=== PATIENT | male | born 1930 | race Caucasian/White ===

== ENCOUNTER 2017-01-25 18:04 | Inpatient (IN) | payer MEDICARE ==
[2017-01-25] MEDS ORDERED: DUONEB 0.5-3 MG/3 ml Neb IH ONE ×2 (18:35→18:43)
--- NOTE | 2017-01-25 18:42 | ERPHSYRPT ---
- History of Present Illness Time Seen by Provider: 01/25/17 18:26 Source: patient Exam Limitations: no limitations Patient Subjective Stated Complaint: PT COMPLAINS OF FEVER COUGH,SORE THROAT SINCE MONDAY. FAMILY STATES PT HAS BEEN ABLE TO EAT OR DRINK. PT DAUGHTER STATES TEMP WAS UP TO 102. DRY MUCUS MEMBRANES NOTED. Triage Nursing Assessment: PT ALERT WARM AND DRY RESP EASY NON LABORED PT AMBULATED TO ROOM WITHOUT DIFFICULTY WHEEZES NOTED ON AUSCULTATION. Physician History: This is a 86-year-old white male with history of aortic valve replacement, GI bleed, ulcers, atrial fibrillation, coronary artery disease, diverticulosis, Patient arrives with complaint of short of breath cough chills fever symptoms for a week. Patient without had any vomiting. Past medical history includes aortic valve replacement, GI bleed, ulcers, atrial fibrillation, coronary artery disease, diverticulosis,. Prostate cancer Past surgical history includes heart valve replacement (aorta, prostate surgery , radiation to prostate Timing/Duration: week(s) (one week) Severity: moderate Modifying Factors: Worsens With: eating, immobilization, medication, movement, rest, acetaminophen, ibuprofen, nothing Associated Symptoms: cough, chills, No nausea, No vomiting, No abdominal pain, No shortness of breath, No heartburn, No diaphoresis, No chest pain, No headaches, No loss of appetite, No malaise, No rash, No syncope, No seizure, No weakness Allergies/Adverse Reactions: No Known Drug Allergies Allergy (Unverified 02/24/12 07:22) Home Medications: Multaq 400 MG BID 02/24/12 [History] Protonix 40 mg IV DAILY 02/24/12 [History] Amlodipine Besylate 5 mg [Norvasc 5 mg] 5 mg PO BID 01/25/17 [History] Apixaban [Eliquis] 5 mg PO BID 01/25/17 [History] Carvedilol 3.125 mg [Coreg 3.125 MG] 3.125 mg PO BID 01/25/17 [History] Hx Tetanus, Diphtheria Vaccination/Date Given: Yes Hx Influenza Vaccination/Date Given: Yes Hx Pneumococcal Vaccination/Date Given: No Immunizations Up to Date: Yes - Review of Systems Constitutional: Fever, Chills, No Fatigue, No Lethargy, No Malaise, No Night Sweats, No Weakness, No Weight Loss Eyes: No Symptoms, No Discharge, No Eye Pain, No Eye Redness, No Itchy, No Photophobia, No Tearing, No Vision Changes, No Double Vision, No Foreign Body Sensation Ears, Nose, & Throat: No Symptoms, Throat Pain Respiratory: Cough, No Cyanosis, No Dyspnea, No Dyspnea on Exertion (NUR), No Stridor, No Wheezing Cardiac: No Chest Pain, No Edema, No Syncope Abdominal/Gastrointestinal: No Abdominal Pain, No Nausea, No Vomiting, No Diarrhea Genitourinary Symptoms: No Dysuria Musculoskeletal: No Back Pain, No Neck Pain Skin: No Rash Neurological: No Dizziness, No Focal Weakness, No Sensory Changes Psychological: No Symptoms Endocrine: No Symptoms All Other Systems: Reviewed and Negative - Past Medical History Pertinent Past Medical History: Yes Neurological History: No Pertinent History ENT History: No Pertinent History Cardiac History: Other Respiratory History: No Pertinent History Endocrine Medical History: No Pertinent History Musculoskeletal History: No Pertinent History GI Medical History: Stomach Cancer, GI Bleed History: No Pertinent History Psycho-Social History: No Pertinent History Male Reproductive Disorders: Other, Prostate Cancer Other Medical History: hx of valve replacement - Past Surgical History Past Surgical History: Yes Neuro Surgical History: No Pertinent History Cardiac: Valve Replacement Respiratory: No Pertinent History Gastrointestinal: Other Male Surgical History: Prostate Surgery Other Surgical History: radiation to prostate - Social History Smoking Status: Former smoker Exposure to second hand smoke: No Drug Use: none Patient Lives Alone: No - Nursing Vital Signs Nursing Vital Signs: Initial Vital Signs Temperature 100.5 F Temperature Source Oral Pulse Rate 101 Respiratory Rate 22 Blood Pressure [Right Arm] 123/84 - Physical Exam General Appearance: other (well-developed well-nourished white male frequent cough alert oriented 3) Eye Exam: PERRL/EOMI, eyes nml inspection Ears, Nose, Throat Exam: normal ENT inspection, TMs normal, pharynx normal, moist mucous membranes Neck Exam: normal inspection, non-tender, supple, full range of motion Respiratory Exam: normal breath sounds, rhonchi, No lungs clear, No respiratory distress Cardiovascular Exam: regular rate/rhythm, normal heart sounds, normal peripheral pulses Gastrointestinal/Abdomen Exam: soft, normal bowel sounds, No tenderness, No mass Back Exam: normal inspection, normal range of motion, No CVA tenderness, No vertebral tenderness Extremity Exam: normal inspection, normal range of motion, pelvis stable Neurologic Exam: alert, oriented x 3, cooperative, normal mood/affect, nml cerebellar function, nml station & gait, sensation nml, No motor deficits Skin Exam: normal color, warm, dry, No rash Lymphatic Exam: No adenopathy SpO2 Interpretation: normal (90% he) SpO2: 90 Oxygen Delivery: Room Air - Course Nursing assessment & vital signs reviewed: Yes EKG Interpreted by Me: RATE (92 bpm), A-fib, NORMAL AXIS, Other (EKG, atrial fibrillation, 92 bpm, normal axis, no acute ST or T wave changes) Ordered Tests: Active Orders 24 hr Category Date Time Status EKG-ER Only STAT Care 01/25/17 18:30 Active IV Insertion STAT Care 01/25/17 18:30 Active CHEST 1 VIEW (PORTABLE) Stat Exams 01/25/17 18:36 Taken BLOOD CULTURE Stat Lab 01/25/17 18:56 Received CBC W DIFF Stat Lab 01/25/17 18:45 Completed CMP Stat Lab 01/25/17 18:45 Completed CULTURE, THROAT Stat Lab 01/25/17 18:56 Received CULTURE,SPUTUM Stat Lab 01/25/17 18:30 Uncollected Lactic Acid Urgent Lab 01/25/17 18:34 Completed STREP SCREEN-BETA A Stat Lab 01/25/17 18:56 Completed Respiratory Nebulizer STAT RT 01/25/17 18:35 Completed Medication Summary Generic Name Dose Route Start Last Admin Trade Name Freq PRN Reason Stop Dose Admin Ceftriaxone Sodium/Dextrose 50 mls @ 100 mls/hr 01/25/17 19:34 Rocephin 1 Gm-D5w 50 Ml Bag IV 01/25/17 20:03 STAT ONE Discontinued Medications Generic Name Dose Route Start Last Admin Trade Name Freq PRN Reason Stop Dose Admin Albuterol/Ipratropium 3 ml 01/25/17 18:35 01/25/17 18:50 Duoneb 0.5-3 Mg/3 Ml Neb IH 01/25/17 18:36 3 ml STAT ONE Administration Albuterol/Ipratropium Confirm 01/25/17 18:43 Duoneb 0.5-3 Mg/3 Ml Neb Administered 01/25/17 18:44 Dose 3 ml IH .STK-MED ONE Lab/Rad Data: Laboratory Result Diagrams 01/25/17 18:45 01/25/17 18:45 Laboratory Results 01/25/17 01/25/17 01/25/17 Range/Units 18:56 18:45 18:45 WBC 3.9 L (4.0-10.5) K/mm3 RBC 3.99 L (4.1-5.6) M/mm3 Hgb 12.5 (12.5-18.0) gm/dl Hct 37.4 L (42-50) % MCV 93.7 (78-100) fl MCH 31.3 (26-32) pg MCHC 33.4 (32-36) g/dl RDW 13.9 (11.5-14.0) % Plt Count 128 L (150-450) K/mm3 MPV 11.8 H (6-9.5) fl Gran % 54.5 (36.0-66.0) % Lymphocytes % 28.6 (24.0-44.0) % Monocytes % 16.9 H (0.0-12.0) % Eosinophils % 0.0 (0.00-5.0) % Basophils % 0.0 (0.0-0.4) % Basophils # 0 (0-0.4) Sodium 146 H (136-145) mEq/L Potassium 3.4 L (3.5-5.1) mEq/L Chloride 110 H (98-107) mEq/L Carbon Dioxide 26.5 (21-32) mEq/L Anion Gap 12.6 (5-15) MEQ/L BUN 24 H (9-20) mg/dL Creatinine 1.21 (0.55-1.30) mg/dl Estimated GFR > 60 ML/MIN Glucose 127 H (70-110) MG/DL Lactic Acid (0.4-2.0) Calcium 8.0 L (8.5-10.1) mg/dL Total Bilirubin 0.5 (0.2-1.0) mg/dL AST 36 (15-37) U/L ALT 18 (12-78) U/L Alkaline Phosphatase 86 (46-116) U/L Serum Total Protein 6.0 L (6.4-8.2) gm/dL Albumin 2.8 L (3.4-5.0) g/dL Streptococcus Screen NEGATIVE (Negative) 01/25/17 Range/Units 18:34 WBC (4.0-10.5) K/mm3 RBC (4.1-5.6) M/mm3 Hgb (12.5-18.0) gm/dl Hct (42-50) % MCV (78-100) fl MCH (26-32) pg MCHC (32-36) g/dl RDW (11.5-14.0) % Plt Count (150-450) K/mm3 MPV (6-9.5) fl Gran % (36.0-66.0) % Lymphocytes % (24.0-44.0) % Monocytes % (0.0-12.0) % Eosinophils % (0.00-5.0) % Basophils % (0.0-0.4) % Basophils # (0-0.4) Sodium (136-145) mEq/L Potassium (3.5-5.1) mEq/L Chloride (98-107) mEq/L Carbon Dioxide (21-32) mEq/L Anion Gap (5-15) MEQ/L BUN (9-20) mg/dL Creatinine (0.55-1.30) mg/dl Estimated GFR ML/MIN Glucose (70-110) MG/DL Lactic Acid 1.3 (0.4-2.0) Calcium (8.5-10.1) mg/dL Total Bilirubin (0.2-1.0) mg/dL AST (15-37) U/L ALT (12-78) U/L Alkaline Phosphatase (46-116) U/L Serum Total Protein (6.4-8.2) gm/dL Albumin (3.4-5.0) g/dL Streptococcus Screen (Negative) - Progress Progress: improved Progress Note: 01/25/17 19:35 86-year-old white male with history of aortic valve replacement arrives with complaint of cough sore throat fever symptoms going on for a week. Patient's family states the patient has not been eating. Patient with bilateral rhonchi on the lung cm some wheezes. Chest x-ray shows a right lower lobe infiltrate. White count is 3.9. Strep is negative flu is pending. Case is discussed with Dr. Rodriguez will place on observation telemetry diagnosis pneumonia, fever. - Departure Time of Disposition: 19:37 Departure Disposition: Observation Clinical Impression: Pneumonia Qualifiers: Pneumonia type: due to unspecified organism Laterality: right Lung location: lower lobe of lung Qualified Code(s): J18.1 - Lobar pneumonia, unspecified organism Fever Qualifiers: Fever type: unspecified Qualified Code(s): R50.9 - Fever, unspecified Condition: Fair Critical Care Time: No Referrals: MARY RODRIGUEZ MD [Primary Care Provider] -
[2017-01-25 18:50] LABS: Granulocytes % 54.5 % (36.0-66.0); Lymphocytes % 28.6 % (24.0-44.0); Mean Cell Volume 93.7 fl (78-100); Mean Corpuscular Hemoglobin 31.3 pg (26-32); Mean Platelet Volume 11.8 fl (6-9.5); Monocytes % 16.9 % (0.0-12.0); Platelet Count 128 K/mm3 (150-450); Red Blood Count 3.99 M/mm3 (4.1-5.6); Red Cell Distribution Width 13.9 % (11.5-14.0); White Blood Count 3.9 K/mm3 (4.0-10.5)
[2017-01-25 19:20] LABS: ALBUMIN 2.8 g/dL (3.4-5.0); ALKALINE PHOSPHATASE 86 U/L (46-116); ANION GAP 12.6 MEQ/L (5-15); BILIRUBIN,TOTAL 0.5 mg/dL (0.2-1.0); BLOOD UREA NITROGEN 24 mg/dL (9-20); CHLORIDE 110 mEq/L (98-107); Carbon Dioxide 26.5 mEq/L (21-32); Glucose 127 MG/DL (70-110); Potassium 3.4 mEq/L (3.5-5.1); SGOT/AST 36 U/L (15-37); SGPT/ALT 18 U/L (12-78); SODIUM 146 mEq/L (136-145)
[2017-01-25] MEDS ORDERED: ROCEPHIN 1 Gm-D5w 50 ml Bag** 50 ML IV ONE ×2 (19:34→20:06)
[2017-01-25] MEDS: Sodium Chloride 0.9% 1000 ML 1,000 ML IV SCH (21:28)
[2017-01-25] MEDS: DUONEB 0.5-3 MG/3 ml Neb IH PRN (22:14)
[2017-01-25] MEDS: Zithromax 500 MG/ 250 ML NaCl Premix 250 ML IV SCH (22:39)
[2017-01-25] MEDS ORDERED: TYLENOL 325 MG PO PRN (23:46)
[2017-01-26] MEDS: Coreg 3.125 MG PO SCH ×2 (00:23→09:56)
[2017-01-26] MEDS: Multaq 400 MG PO SCH ×3 (00:24→21:43)
[2017-01-26] MEDS: ELIQUIS PO SCH ×3 (00:24→21:43)
[2017-01-26 05:35] LABS: Eosinophil % 0.3 % (0.00-5.0); Granulocytes % 48.2 % (36.0-66.0); Lymphocytes % 36.5 % (24.0-44.0); Mean Cell Volume 93.9 fl (78-100); Mean Platelet Volume 11.7 fl (6-9.5); Platelet Count 120 K/mm3 (150-450); Red Blood Count 3.96 M/mm3 (4.1-5.6); White Blood Count 3.7 K/mm3 (4.0-10.5)
[2017-01-26 05:53] LABS: Mean Corpuscular Hemoglobin 30.5 pg (26-32)
[2017-01-26 06:00] LABS: ALBUMIN 2.5 g/dL (3.4-5.0); ALKALINE PHOSPHATASE 76 U/L (46-116); ANION GAP 10.7 MEQ/L (5-15); BILIRUBIN,TOTAL 0.4 mg/dL (0.2-1.0); BLOOD UREA NITROGEN 21 mg/dL (9-20); CHLORIDE 112 mEq/L (98-107); Carbon Dioxide 27.3 mEq/L (21-32); Glucose 100 MG/DL (70-110); Potassium 3.3 mEq/L (3.5-5.1); SGOT/AST 36 U/L (15-37); SGPT/ALT 13 U/L (12-78); SODIUM 147 mEq/L (136-145); Total Protein 5.4 gm/dL (6.4-8.2)
[2017-01-26] MEDS: Sodium Chloride 0.9% 1000 ML 1,000 ML IV SCH ×2 (08:13→17:23)
--- NOTE | 2017-01-26 09:02 | XRAY ---
Indication: Cough and fever. Comparison: None Portable chest demonstrates patchy right upper lobe infiltrate. There is also mild bibasilar infiltrates/atelectasis, left greater than right. Query tiny bibasilar effusions. A few calcified granulomas. Heart is not enlarged. Bony thorax intact with osteopenia, degenerative changes, and sternotomy wires. Impression: Right upper lobe infiltrate and bibasilar infiltrate/atelectasis with tiny effusions. Correlate clinically.
[2017-01-26] MEDS: Protonix 40MG Tablet PO SCH (09:56)
[2017-01-26] MEDS: Zithromax 500 MG/ 250 ML NaCl Premix 250 ML IV SCH (09:56)
[2017-01-26] MEDS: NORVASC 5 MG PO SCH ×2 (09:56→21:43)
[2017-01-26] MEDS: celeBREX 100 MG PO SCH (09:56)
[2017-01-26] MEDS: ECOTRIN 81 MG PO SCH (09:56)
[2017-01-26] MEDS: Zestril 20 MG PO SCH (09:56)
--- NOTE | 2017-01-26 12:02 | PCM.HP ---
History of Present Illness - Chief Complaint Chief Complaint: Shortness of Breath for 1 - 2 days History of Present Illness: This is a 86-year-old white male with history of aortic valve replacement, GI bleed, ulcers, atrial fibrillation, coronary artery disease, diverticulosis, Patient arrives with complaint of short of breath cough chills fever symptoms for a week. Patient without had any vomiting. Past medical history includes aortic valve replacement, GI bleed, ulcers, atrial fibrillation, coronary artery disease, diverticulosis,. Prostate cancer Past surgical history includes heart valve replacement (aorta, prostate surgery , radiation to prostate Timing/Duration: week(s) (one week) - Review of Systems Constitutional: Fever, Chills, Weakness Eyes: No Symptoms Ears, Nose, & Throat: No Symptoms Respiratory: No Cough, No Short Of Breath Cardiac: No Chest Pain, No Edema, No Syncope Abdominal/Gastrointestinal: No Abdominal Pain, No Nausea, No Vomiting, No Diarrhea Genitourinary Symptoms: No Dysuria Musculoskeletal: No Back Pain, No Neck Pain Skin: No Rash Neurological: No Dizziness, No Focal Weakness, No Sensory Changes Psychological: No Symptoms Endocrine: No Symptoms Hematologic/Lymphatic: No Symptoms Immunological/Allergic: No Symptoms Medications & Allergies Home Medications: Home Medication List Dronedarone Hydrochloride 400* [Multaq 400 MG] 400 mg BID 02/24/12 [History Confirmed 01/25/17] Aspirin EC 81 mg [Ecotrin 81 mg] 81 mg PO DAILY #0 tablet.ec 02/25/12 [Rx Confirmed 01/25/17] Amlodipine Besylate 5 mg [Norvasc 5 mg] 5 mg PO BID 01/25/17 [History Confirmed 01/25/17] Apixaban [Eliquis] 5 mg PO BID 01/25/17 [History Confirmed 01/25/17] Carvedilol 3.125 mg [Coreg 3.125 MG] 3.125 mg PO BID 01/25/17 [History Confirmed 01/25/17] Celecoxib 100 mg [celeBREX 100 MG] 100 mg PO DAILY 01/25/17 [History Confirmed 01/25/17] Lisinopril 20 mg [Zestril 20 MG] 20 mg PO DAILY 01/25/17 [History Confirmed 01/25/17] PANTOPRAZOLE 40 mg Tablet [Protonix 40MG Tablet] 40 mg PO DAILY 01/25/17 [ History Confirmed 01/25/17] Allergies/Adverse Reactions: Allergies Allergy/AdvReac Type Severity Reaction Status Date / Time No Known Drug Allergies Allergy Unverified 02/24/12 07:22 - Past Medical History Past Medical History: Yes Neurological History: No Pertinent History ENT History: No Pertinent History Cardiac History: Other Respiratory History: No Pertinent History Endocrine Medical History: No Pertinent History Musculoskelatal History: No Pertinent History GI Medical History: GI Bleed History: No Pertinent History Pyscho-Social History: No Pertinent History Male Reproductive Disorders: Other, Prostate Cancer Comment: hx of valve replacement - Past Surgical History Past Surgical History: Yes Neuro Surgical History: No Pertinent History Cardiac History: Valve Replacement Respiratory Surgery: No Pertinent History GI Surgical History: Other Male Surgical History: Prostate Surgery Other Surgical History: radiation to prostate - Social History Smoking Status: Former smoker Exposure to second hand smoke: No Alcohol: None Drug Use: none - Physical Exam Vital Signs: Vital Signs - 24 hr Temp Pulse Resp BP Pulse Ox 01/26/17 11:53 98.7 F 73 20 88/61 96 01/26/17 10:28 93 L 01/26/17 09:00 20 01/26/17 08:00 97.5 F 82 20 99/56 93 L 01/26/17 05:00 22 01/26/17 04:31 96 01/26/17 04:00 99.1 F 80 22 100/61 94 L 01/26/17 01:00 24 01/26/17 00:00 99.2 F 91 H 24 97/60 94 L 01/25/17 22:16 86 18 92 L 01/25/17 21:00 100.2 F 96 H 18 109/59 92 L 01/25/17 19:45 90 L 01/25/17 18:54 101 H 22 90 L 01/25/17 18:14 100.5 F 118 H 18 123/84 90 L Oxygen-Last 24 hours O2 Percentage 100% O2 Percentage 100% O2 Percentage 100% O2 Percentage 4 Liters = 36% O2 Percentage 3 Liters = 32% General Appearance: no apparent distress, alert Neurologic Exam: alert, oriented x 3, cooperative, normal mood/affect, nml cerebellar function, nml station & gait, sensation nml, No motor deficits Eye Exam: PERRL/EOMI, eyes nml inspection Ears, Nose, Throat Exam: normal ENT inspection, TMs normal, pharynx normal, moist mucous membranes Neck Exam: normal inspection, non-tender, supple, full range of motion Respiratory Exam: normal breath sounds, diminished breath sounds, prolonged expirations, crackles/rales, rhonchi, No respiratory distress Cardiovascular Exam: regular rate/rhythm, normal heart sounds, normal peripheral pulses Gastrointestinal/Abdomen Exam: soft, normal bowel sounds, No tenderness, No mass Back Exam: normal inspection, normal range of motion, No CVA tenderness, No vertebral tenderness Extremity Exam: normal inspection, normal range of motion, pelvis stable Skin Exam: normal color, warm, dry, No rash Lymphatic Exam: No adenopathy Results - Labs Lab/Micro Results: Lab Results-Last 24 Hours 01/26/17 01/26/17 Range/Units 05:20 05:20 WBC 3.7 L (4.0-10.5) K/mm3 RBC 3.96 L (4.1-5.6) M/mm3 Hgb 12.1 L (12.5-18.0) gm/dl Hct 37.2 L (42-50) % MCV 93.9 (78-100) fl MCH 30.5 (26-32) pg MCHC 32.5 (32-36) g/dl RDW 14.0 (11.5-14.0) % Plt Count 120 L (150-450) K/mm3 MPV 11.7 H (6-9.5) fl Gran % 48.2 (36.0-66.0) % Lymphocytes % 36.5 (24.0-44.0) % Monocytes % 15.0 H (0.0-12.0) % Eosinophils % 0.3 (0.00-5.0) % Basophils % 0.0 (0.0-0.4) % Basophils # 0 (0-0.4) Sodium 147 H (136-145) mEq/L Potassium 3.3 L (3.5-5.1) mEq/L Chloride 112 H (98-107) mEq/L Carbon Dioxide 27.3 (21-32) mEq/L Anion Gap 10.7 (5-15) MEQ/L BUN 21 H (9-20) mg/dL Creatinine 1.16 (0.55-1.30) mg/dl Estimated GFR > 60 ML/MIN Glucose 100 (70-110) MG/DL Calcium 7.7 L (8.5-10.1) mg/dL Total Bilirubin 0.4 (0.2-1.0) mg/dL AST 36 (15-37) U/L ALT 13 (12-78) U/L Alkaline Phosphatase 76 (46-116) U/L Serum Total Protein 5.4 L (6.4-8.2) gm/dL Albumin 2.5 L (3.4-5.0) g/dL - Other Procedures and Tests Respiratory Therapy 01/25/17 21:35 neb [Respiratory Nebulizer] UD 01/25/17 22:32 Flutter Therapy 01/26/17 04:15 Oxygen OXYMIZER-LPM 10% Assessment/Plan (1) Pneumonia Current Visit: Yes Status: Acute Qualifiers: Pneumonia type: due to unspecified organism Laterality: right Lung location: lower lobe of lung Qualified Code(s): J18.1 - Lobar pneumonia, unspecified organism Code(s): J18.9 - PNEUMONIA, UNSPECIFIED ORGANISM (2) Influenza A Current Visit: Yes Status: Acute Code(s): J10.1 - FLU DUE TO OTH IDENT INFLUENZA VIRUS W OTH RESP MANIFEST
[2017-01-26] MEDS ORDERED: OSELTAMIVIR PHOSPHATE 30 MG CAP PO SCH (13:00)
[2017-01-26] MEDS: Tamiflu 75MG Capsule PO SCH ×2 (13:58→21:43)
[2017-01-26] MEDS: DUONEB 0.5-3 MG/3 ml Neb IH PRN (19:07)
[2017-01-26] MEDS: ROCEPHIN 1 Gm-D5w 50 ml Bag** 50 ML IV SCH (21:42)
[2017-01-26] MEDS: Robitussin 100 MG/5 ML PO PRN (23:37)
[2017-01-27] MEDS: Sodium Chloride 0.9% 1000 ML 1,000 ML IV SCH ×2 (06:18→19:18)
[2017-01-27] MEDS: Coreg 3.125 MG PO SCH (09:13)
[2017-01-27] MEDS: Protonix 40MG Tablet PO SCH (09:13)
[2017-01-27] MEDS: NORVASC 5 MG PO SCH ×2 (09:13→20:52)
[2017-01-27] MEDS: ELIQUIS PO SCH ×2 (09:13→20:51)
[2017-01-27] MEDS: celeBREX 100 MG PO SCH (09:13)
[2017-01-27] MEDS: ECOTRIN 81 MG PO SCH (09:14)
[2017-01-27] MEDS: Zestril 20 MG PO SCH (09:14)
[2017-01-27] MEDS: Multaq 400 MG PO SCH ×2 (09:14→20:52)
[2017-01-27] MEDS: Tamiflu 75MG Capsule PO SCH ×2 (09:14→20:52)
[2017-01-27] MEDS: Zithromax 500 MG/ 250 ML NaCl Premix 250 ML IV SCH (09:20)
[2017-01-27] MEDS: Robitussin 100 MG/5 ML PO PRN ×3 (09:23→23:27)
--- NOTE | 2017-01-27 13:20 | PCM.NOTE ---
Date and Time: 01/27/17 1318 Subjective Assessment: still short of breath, - Review of Systems Constitutional: No Fever, No Chills Eyes: No Symptoms Ears, Nose, & Throat: No Symptoms Respiratory: No Cough, No Short Of Breath Cardiac: No Chest Pain, No Edema, No Syncope Abdominal/Gastrointestinal: No Abdominal Pain, No Nausea, No Vomiting, No Diarrhea Genitourinary Symptoms: No Dysuria Musculoskeletal: No Back Pain, No Neck Pain Skin: No Rash Neurological: No Dizziness, No Focal Weakness, No Sensory Changes Psychological: No Symptoms Endocrine: No Symptoms Hematologic/Lymphatic: No Symptoms Immunological/Allergic: No Symptoms Objective Exam General Appearance: no apparent distress, alert Neurologic Exam: alert, oriented x 3, cooperative, normal mood/affect, nml cerebellar function, sensation nml, No motor deficits Skin Exam: normal color, warm, dry Eye Exam: PERRL, EOMI, eyes nml inspection Ears, Nose, Throat Exam: normal ENT inspection, pharynx normal, moist mucous membranes Neck Exam: normal inspection, non-tender, supple, full range of motion Respiratory Exam: normal breath sounds, lungs clear, No respiratory distress Cardiovascular Exam: regular rate/rhythm, normal heart sounds Gastrointestinal/Abdomen Exam: soft, No tenderness, No mass Extremity Exam: normal inspection, normal range of motion Back Exam: normal inspection, normal range of motion, No CVA tenderness, No vertebral tenderness Male Genitalia Exam: deferred Rectal Exam: deferred OBJECTIVE DATA Vital Signs: Vital Signs - 24 hr Temp Pulse Resp BP Pulse Ox 01/27/17 11:51 98.3 F 66 17 106/63 96 01/27/17 07:32 98.0 F 70 17 116/56 91 L 01/27/17 07:05 88 L 01/27/17 05:00 19 01/27/17 04:00 99.2 F 73 20 104/58 95 01/27/17 01:00 22 01/26/17 23:55 98.9 F 83 20 116/71 95 01/26/17 21:00 21 01/26/17 19:37 98.9 F 91 H 22 120/70 96 01/26/17 19:09 83 20 94 L 01/26/17 16:49 20 01/26/17 16:00 99.1 F 88 20 100/61 99 Oxygen-Last 24 hours O2 Percentage 3 Liters = 32% O2 Percentage 3 Liters = 32% O2 Percentage 3 Liters = 32% O2 Percentage 3 Liters = 32% O2 Percentage 3 Liters = 32% O2 Percentage 100% Pain Assessment - Last Documented Pain Intensity 0 Pain Scale Used 0-10 Pain Scale Intake and Output: Intake & Output 01/25/17 01/26/17 01/27/17 01/28/17 11:59 11:59 11:59 11:59 Intake Total 978 2783 Output Total 300 725 Balance 678 8 Weight 87.815 kg 91.354 kg Multi-Disciplinary Progress Notes: Multi-Disciplinary Progress Notes 01/26/17 17:59 Respiratory Note by Isabel Machado humidity added to o2 Initialized on 01/26/17 17:59 - END OF NOTE Assessment/Plan (1) Pneumonia Current Visit: Yes Status: Acute Qualifiers: Pneumonia type: due to unspecified organism Laterality: right Lung location: lower lobe of lung Qualified Code(s): J18.1 - Lobar pneumonia, unspecified organism Code(s): J18.9 - PNEUMONIA, UNSPECIFIED ORGANISM (2) Influenza A Current Visit: Yes Status: Acute Code(s): J10.1 - FLU DUE TO OTH IDENT INFLUENZA VIRUS W OTH RESP MANIFEST
[2017-01-27 14:14] LABS: Mean Cell Volume 93.8 fl (78-100); Mean Corpuscular Hemoglobin 30.9 pg (26-32); Mean Platelet Volume 11.5 fl (6-9.5); Platelet Count 123 K/mm3 (150-450); Red Blood Count 3.85 M/mm3 (4.1-5.6); Red Cell Distribution Width 13.8 % (11.5-14.0)
--- NOTE | 2017-01-27 14:16 | XRAY ---
Indication: Short of breath. Pneumonia. Comparison: January 25, 2017. Portable chest demonstrates mildly worsening right upper lobe infiltrate. Stable bibasilar infiltrate/atelectasis/effusions and pulmonary calcified granuloma. Heart is not enlarged.
[2017-01-27 14:37] LABS: ALBUMIN 2.4 g/dL (3.4-5.0); ALKALINE PHOSPHATASE 79 U/L (46-116); ANION GAP 9.3 MEQ/L (5-15); BILIRUBIN,TOTAL 0.5 mg/dL (0.2-1.0); BLOOD UREA NITROGEN 15 mg/dL (9-20); CHLORIDE 112 mEq/L (98-107); Carbon Dioxide 27.1 mEq/L (21-32); Glucose 114 MG/DL (70-110); Potassium 3.2 mEq/L (3.5-5.1); SGOT/AST 50 U/L (15-37); SGPT/ALT 22 U/L (12-78); SODIUM 145 mEq/L (136-145); Total Protein 5.5 gm/dL (6.4-8.2)
[2017-01-27] MEDS: DUONEB 0.5-3 MG/3 ml Neb IH PRN (15:00)
[2017-01-27] MEDS: DUONEB 0.5-3 MG/3 ml Neb IH SCH ×2 (18:45→23:00)
[2017-01-27] MEDS: ROCEPHIN 1 Gm-D5w 50 ml Bag** 50 ML IV SCH (20:51)
[2017-01-28] MEDS: DUONEB 0.5-3 MG/3 ml Neb IH SCH ×6 (03:18→22:58)
[2017-01-28] MEDS: Sodium Chloride 0.9% 1000 ML 1,000 ML IV SCH ×3 (05:34→23:43)
[2017-01-28] MEDS: Protonix 40MG Tablet PO SCH (08:45)
[2017-01-28] MEDS: Coreg 3.125 MG PO SCH (08:45)
[2017-01-28] MEDS: Zestril 20 MG PO SCH (08:45)
[2017-01-28] MEDS: NORVASC 5 MG PO SCH ×2 (08:46→22:17)
[2017-01-28] MEDS: ECOTRIN 81 MG PO SCH (08:46)
[2017-01-28] MEDS: ELIQUIS PO SCH ×2 (08:46→22:16)
[2017-01-28] MEDS: Zithromax 500 MG/ 250 ML NaCl Premix 250 ML IV SCH (08:46)
[2017-01-28] MEDS: Tamiflu 75MG Capsule PO SCH ×2 (08:46→22:17)
[2017-01-28] MEDS: celeBREX 100 MG PO SCH (08:46)
--- NOTE | 2017-01-28 19:14 | PCM.NOTE ---
Date and Time: 01/28/171911 Subjective Assessment: still very short of breath, c/o cough - Review of Systems Constitutional: No Fever, No Chills Eyes: No Symptoms Ears, Nose, & Throat: No Symptoms Respiratory: Cough, Orthopnea, Short Of Breath, Wheezing Cardiac: No Chest Pain, No Edema, No Syncope Abdominal/Gastrointestinal: No Abdominal Pain, No Nausea, No Vomiting, No Diarrhea Genitourinary Symptoms: No Dysuria Musculoskeletal: No Back Pain, No Neck Pain Skin: No Rash Neurological: No Dizziness, No Focal Weakness, No Sensory Changes Psychological: No Symptoms Endocrine: No Symptoms Hematologic/Lymphatic: No Symptoms Immunological/Allergic: No Symptoms Objective Exam General Appearance: no apparent distress, alert Neurologic Exam: alert, oriented x 3, cooperative, normal mood/affect, nml cerebellar function, sensation nml, No motor deficits Skin Exam: normal color, warm, dry Eye Exam: PERRL, EOMI, eyes nml inspection Ears, Nose, Throat Exam: normal ENT inspection, pharynx normal, moist mucous membranes Neck Exam: normal inspection, non-tender, supple, full range of motion Respiratory Exam: diminished breath sounds, crackles/rales, rhonchi, wheezing, No respiratory distress Cardiovascular Exam: regular rate/rhythm, normal heart sounds Gastrointestinal/Abdomen Exam: soft, No tenderness, No mass Extremity Exam: normal inspection, normal range of motion Back Exam: normal inspection, normal range of motion, No CVA tenderness, No vertebral tenderness Male Genitalia Exam: deferred Rectal Exam: deferred OBJECTIVE DATA Vital Signs: Vital Signs - 24 hr Temp Pulse Resp BP Pulse Ox 01/28/17 16:00 99 F 75 20 148/79 92 L 01/28/17 14:32 83 22 92 L 01/28/17 11:39 98.3 F 66 20 130/75 95 01/28/17 10:38 73 20 93 L 01/28/17 07:41 98.4 F 76 20 136/73 95 01/28/17 06:40 76 20 95 01/28/17 05:00 20 01/28/17 04:00 98.3 F 67 20 133/76 92 L 01/28/17 03:18 67 20 88 L 01/28/17 01:00 20 01/28/17 00:00 97.9 F 73 20 118/57 92 L 01/27/17 23:16 73 20 92 L 01/27/17 21:00 21 01/27/17 20:00 97.8 F 74 22 123/73 94 L 01/27/17 19:21 73 18 94 L Oxygen-Last 24 hours O2 Percentage 4 Liters = 36% O2 Percentage 4 Liters = 36% O2 Percentage 4 Liters = 36% O2 Percentage 4 Liters = 36% O2 Percentage 3 Liters = 32% O2 Percentage 3 Liters = 32% Pain Assessment - Last Documented Pain Intensity 0 Pain Scale Used 0-10 Pain Scale Intake and Output: Intake & Output 01/26/17 01/27/17 01/28/17 01/29/17 11:59 11:59 11:59 11:59 Intake Total 978 2783 3457 480 Output Total 347 535 5791 Balance 678 2058 2357 480 Weight 87.815 kg 91.354 kg 93.304 kg Radiology Exams: Radiology Procedures Category Date Time Status CHEST 1 VIEW (PORTABLE) Urgent Exams 01/27/17 13:43 Completed Assessment/Plan (1) Pneumonia Current Visit: Yes Status: Acute Qualifiers: Pneumonia type: due to unspecified organism Laterality: right Lung location: lower lobe of lung Qualified Code(s): J18.1 - Lobar pneumonia, unspecified organism Code(s): J18.9 - PNEUMONIA, UNSPECIFIED ORGANISM (2) Influenza A Current Visit: Yes Status: Acute Code(s): J10.1 - FLU DUE TO OTH IDENT INFLUENZA VIRUS W OTH RESP MANIFEST
[2017-01-28] MEDS: Multaq 400 MG PO SCH (22:17)
[2017-01-28] MEDS: ROCEPHIN 1 Gm-D5w 50 ml Bag** 50 ML IV SCH (22:17)
[2017-01-28] MEDS: Robitussin 100 MG/5 ML PO PRN (22:18)
[2017-01-29] MEDS: DUONEB 0.5-3 MG/3 ml Neb IH SCH ×6 (02:59→23:13)
[2017-01-29] MEDS: ELIQUIS PO SCH ×2 (09:35→22:50)
[2017-01-29] MEDS: ECOTRIN 81 MG PO SCH (09:35)
[2017-01-29] MEDS: Tamiflu 75MG Capsule PO SCH ×2 (09:35→22:50)
[2017-01-29] MEDS: Protonix 40MG Tablet PO SCH (09:35)
[2017-01-29] MEDS: Coreg 3.125 MG PO SCH (09:35)
[2017-01-29] MEDS: Zithromax 500 MG/ 250 ML NaCl Premix 250 ML IV SCH (09:35)
[2017-01-29] MEDS: celeBREX 100 MG PO SCH (09:35)
[2017-01-29] MEDS: NORVASC 5 MG PO SCH ×2 (09:35→22:50)
[2017-01-29] MEDS: Zestril 20 MG PO SCH (09:35)
[2017-01-29] MEDS: Multaq 400 MG PO SCH ×2 (09:36→22:50)
[2017-01-29] MEDS: Robitussin 100 MG/5 ML PO PRN ×2 (09:36→13:23)
--- NOTE | 2017-01-29 16:22 | PCM.NOTE ---
Date and Time: 01/29/171621 Subjective Assessment: doing better - Review of Systems Constitutional: No Fever, No Chills Eyes: No Symptoms Ears, Nose, & Throat: No Symptoms Respiratory: No Cough, No Short Of Breath Cardiac: No Chest Pain, No Edema, No Syncope Abdominal/Gastrointestinal: No Abdominal Pain, No Nausea, No Vomiting, No Diarrhea Genitourinary Symptoms: No Dysuria Musculoskeletal: No Back Pain, No Neck Pain Skin: No Rash Neurological: No Dizziness, No Focal Weakness, No Sensory Changes Psychological: No Symptoms Endocrine: No Symptoms Hematologic/Lymphatic: No Symptoms Immunological/Allergic: No Symptoms Objective Exam General Appearance: no apparent distress, alert Neurologic Exam: alert, oriented x 3, cooperative, normal mood/affect, nml cerebellar function, sensation nml, No motor deficits Skin Exam: normal color, warm, dry Eye Exam: PERRL, EOMI, eyes nml inspection Ears, Nose, Throat Exam: normal ENT inspection, pharynx normal, moist mucous membranes Neck Exam: normal inspection, non-tender, supple, full range of motion Respiratory Exam: normal breath sounds, lungs clear, No respiratory distress Cardiovascular Exam: regular rate/rhythm, normal heart sounds Gastrointestinal/Abdomen Exam: soft, No tenderness, No mass Extremity Exam: normal inspection, normal range of motion Back Exam: normal inspection, normal range of motion, No CVA tenderness, No vertebral tenderness Male Genitalia Exam: deferred Rectal Exam: deferred OBJECTIVE DATA Vital Signs: Vital Signs - 24 hr Temp Pulse Resp BP Pulse Ox 01/29/17 14:52 68 18 93 L 01/29/17 13:00 18 01/29/17 11:27 98.6 F 72 18 107/59 91 L 01/29/17 10:39 72 18 91 L 01/29/17 09:00 18 01/29/17 08:00 99.3 F 80 18 114/61 91 L 01/29/17 06:44 70 20 92 L 01/29/17 05:00 24 01/29/17 03:49 99.4 F 69 20 132/64 92 L 01/29/17 03:00 69 20 92 L 01/29/17 01:00 21 01/29/17 00:00 99.0 F 77 24 133/77 93 L 01/28/17 22:58 77 24 93 L 01/28/17 21:00 24 01/28/17 20:00 98.2 F 89 25 H 135/76 91 L 01/28/17 19:34 89 25 H 91 L Oxygen-Last 24 hours O2 Percentage 4 Liters = 36% O2 Percentage 4 Liters = 36% O2 Percentage 4 Liters = 36% O2 Percentage 4 Liters = 36% O2 Percentage 4 Liters = 36% Pain Assessment - Last Documented Pain Scale Used 0-10 Pain Scale Intake and Output: Intake & Output 01/27/17 01/28/17 01/29/17 01/30/17 11:59 11:59 11:59 11:59 Intake Total 2239 Output Total 1400 200 Balance 839 -200 Weight 92.261 kg Multi-Disciplinary Progress Notes: Multi-Disciplinary Progress Notes 01/29/17 11:49 Case Management Note by Verona Schulte DISCHARGE NEEDS ASSESSED. PT CONTINUES TO DECLINE, HAS INCREASED ACUITY TO INPT AT THIS TIME, DECREASING FLUIDS AND INCREASING OXYGEN. POOR PROGNOSIS. WITH PT WHEN DR. RODRIGUEZ AND CLAY CARMAN ROUNDED YESTERDAY AND EXPLAINED POOR PROGNOSIS. WILL CONTINUE TO MONITOR AND ASSESS FOR ALL DISCHARGE NEEDS. Initialized on 01/29/17 11:49 - END OF NOTE Assessment/Plan (1) Pneumonia Current Visit: Yes Status: Acute Qualifiers: Pneumonia type: due to unspecified organism Laterality: right Lung location: lower lobe of lung Qualified Code(s): J18.1 - Lobar pneumonia, unspecified organism Code(s): J18.9 - PNEUMONIA, UNSPECIFIED ORGANISM (2) Influenza A Current Visit: Yes Status: Acute Code(s): J10.1 - FLU DUE TO OTH IDENT INFLUENZA VIRUS W OTH RESP MANIFEST
[2017-01-29] MEDS: ROCEPHIN 1 Gm-D5w 50 ml Bag** 50 ML IV SCH (22:49)
[2017-01-29] MEDS: Sodium Chloride 0.9% 1000 ML 1,000 ML IV SCH (22:59)
[2017-01-30] MEDS: DUONEB 0.5-3 MG/3 ml Neb IH SCH ×3 (03:05→10:50)
[2017-01-30] MEDS: Zestril 20 MG PO SCH (08:44)
[2017-01-30] MEDS: NORVASC 5 MG PO SCH (08:44)
[2017-01-30] MEDS: celeBREX 100 MG PO SCH (08:44)
[2017-01-30] MEDS: Protonix 40MG Tablet PO SCH (08:44)
[2017-01-30] MEDS: ECOTRIN 81 MG PO SCH (08:44)
[2017-01-30] MEDS: ELIQUIS PO SCH (08:44)
[2017-01-30] MEDS: Coreg 3.125 MG PO SCH (08:44)
[2017-01-30] MEDS: Tamiflu 75MG Capsule PO SCH (08:44)
[2017-01-30] MEDS: Robitussin 100 MG/5 ML PO PRN (08:45)
[2017-01-30] MEDS: Multaq 400 MG PO SCH (08:45)
[2017-01-30] MEDS: Zithromax 500 MG/ 250 ML NaCl Premix 250 ML IV SCH (08:49)
[2017-01-30 11:47] VITALS: BP 119/64; PULSE 72; O2SAT 92
== END 2017-01-30 13:59 | disposition home or self-care (01) | DRG 195 ==
LOC: ED 18:04 → MED SURG 20:24 → OBSVTOIN 01-28 19:10
PROVIDERS: ADMIT General Practice; ATTEND General Practice
DX: J18.1 Lobar pneumonia, unspecified organism (principal); J10.1 Influenza due to other identified influenza virus with other respiratory manifestations; I48.91 Unspecified atrial fibrillation; Z85.028 Personal history of other malignant neoplasm of stomach; Z95.2 Presence of prosthetic heart valve; I25.10 Atherosclerotic heart disease of native coronary artery without angina pectoris; Z85.46 Personal history of malignant neoplasm of prostate
CPT/HCPCS: 36415; 71010; 80053; 83605; 85025; 85027; 87040; 87070; 87430; 87631; 93005; 93268; 94640; 94760; 96360; 99285; G0378; J0456; J0696; A9270-GY

== ENCOUNTER 2019-04-22 14:29 | Emergency (ER) | payer MEDICARE ==
[2019-04-22] MEDS ORDERED: Sodium Chloride 0.9% 1000 ML 1,000 ML IV SCH (14:45)
[2019-04-22 14:49] LABS: BASOPHIL % 0.3 % (0.0-0.4); Basophil (Absolute #) 0.02 (0-0.4); Eosinophil (Absolute #) 0.18 (0-0.5); Granulocyte Absolute (ANC) 3.19 (1.4-6.9); Granulocytes % 52.8 % (36.0-66.0); Hematocrit 39.5 % (42-50); Lymphocyte (Absolute #) 2.09 (1.0-4.6); Lymphocytes % 34.6 % (24.0-44.0); Mean Cell Volume 93.2 fl (78-100); Mean Corpuscular Hemoglobin 30.7 pg (26-32); Mean Corpuscular Hgb Concent. 32.9 g/dl (32-36); Mean Platelet Volume 10.9 fl (6-9.5); Monocyte (Absolute #) 0.56 (0.0-1.3); Monocytes % 9.3 % (0.0-12.0); Platelet Count 178 K/mm3 (150-450); Red Blood Count 4.24 M/mm3 (4.1-5.6); Red Cell Distribution Width 14.1 % (11.5-14.0)
[2019-04-22 14:50] VITALS: PULSE 66; O2SAT 95
[2019-04-22 15:01] LABS: ALBUMIN 3.9 g/dL (3.5-5.0); BILIRUBIN,TOTAL 0.4 mg/dL (0.2-1.3); Calcium 9.1 mg/dL (8.4-10.2); Creatinine 1 2.39 mg/dL (0.66-1.25); Total Protein 6.9 g/dL (6.3-8.2)
[2019-04-22 15:07] LABS: INR 1.25 (0.8-3.0); PROTIME 14.2 SECONDS (8.83-12.87)
[2019-04-22 15:09] LABS: PTT 34.8 SECONDS (24.1-36.1)
--- NOTE | 2019-04-22 15:12 | ERPHSYRPT ---
- History of Present Illness Time Seen by Provider: 04/22/19 15:07 Source: patient Exam Limitations: no limitations Patient Subjective Stated Complaint: Began having slurred speech and numbness in his right hand on , it happened again today and Dr. Rodriguez told him to come on in to the ER Triage Nursing Assessment: Pt walked into the ER with a stable gait, no slurred speech, no numbness or tingling, denies pain, doesn't feel right, reports having a couple of these episodes since , PERRL, doesn't appear to be in any distress Physician History: 80-year-old white male with history of GI bleed, prostate cancer, valve replacement arrives with complaint of slurred speech, and feeling of paresthesia in the right hand symptoms which occurred at 1:00 this afternoon. Patient apparently had similar symptoms last The patient is now without any slurred speech upon returning from CT of the head. He is not having paresthesias at this time. Past medical history includes GI bleed, prostate cancer, valve replacement Timing/Duration: today (1:00 pm) Severity: moderate Modifying Factors: Improves With: nothing Associated Symptoms: No nausea, No vomiting, No abdominal pain, No shortness of breath (nnegative CT), No heartburn, No diaphoresis, No cough, No chills, No chest pain, No fever, No headaches, No loss of appetite, No malaise, No rash, No syncope, No seizure Allergies/Adverse Reactions: No Known Drug Allergies Allergy (Verified 04/22/19 14:50) Home Medications: Dronedarone Hydrochloride 400* [Multaq 400 MG] 400 mg BID 02/24/12 [History] Amlodipine Besylate 5 mg [Norvasc 5 mg] 5 mg PO BID 01/25/17 [History] Apixaban [Eliquis] 5 mg PO BID 01/25/17 [History] Carvedilol 3.125 mg [Coreg 3.125 MG] 3.125 mg PO BID 01/25/17 [History] Celecoxib 100 mg [celeBREX 100 MG] 100 mg PO DAILY 01/25/17 [History] PANTOPRAZOLE 40 mg Tablet [Protonix 40MG Tablet] 40 mg PO DAILY 01/25/17 [ History] Hx Tetanus, Diphtheria Vaccination/Date Given: Yes Hx Influenza Vaccination/Date Given: Yes Hx Pneumococcal Vaccination/Date Given: No - Review of Systems Constitutional: No Fever, No Chills Eyes: No Symptoms Ears, Nose, & Throat: No Symptoms Respiratory: No Cough, No Dyspnea Cardiac: No Chest Pain, No Edema, No Syncope Abdominal/Gastrointestinal: No Abdominal Pain, No Nausea, No Vomiting, No Diarrhea Genitourinary Symptoms: No Dysuria Musculoskeletal: No Back Pain, No Neck Pain Skin: No Symptoms (and) Neurological: Parasthesia (parasthesia right hand), Speech Changes (slurry speech at 1:00) Psychological: No Symptoms Endocrine: No Symptoms All Other Systems: Reviewed and Negative - Past Medical History Pertinent Past Medical History: Yes Neurological History: No Pertinent History ENT History: No Pertinent History Cardiac History: Other Respiratory History: No Pertinent History Endocrine Medical History: No Pertinent History Musculoskeletal History: No Pertinent History GI Medical History: GI Bleed History: No Pertinent History Psycho-Social History: No Pertinent History Male Reproductive Disorders: Other, Prostate Cancer Other Medical History: hx of valve replacement - Past Surgical History Past Surgical History: Yes Neuro Surgical History: No Pertinent History Cardiac: Valve Replacement Respiratory: No Pertinent History Gastrointestinal: Other Male Surgical History: Prostate Surgery Other Surgical History: radiation to prostate - Social History Smoking Status: Former smoker Exposure to second hand smoke: No Drug Use: none Patient Lives Alone: No - Nursing Vital Signs Nursing Vital Signs: Initial Vital Signs Temperature 98.7 F 04/22/19 14:38 Pulse Rate 66 04/22/19 14:38 Blood Pressure 117/71 04/22/19 14:38 O2 Sat by Pulse Oximetry 95 04/22/19 14:38 Pain Scale Pain Intensity 0 - Physical Exam General Appearance: no apparent distress, alert Eye Exam: PERRL/EOMI, eyes nml inspection Ears, Nose, Throat Exam: normal ENT inspection, TMs normal, pharynx normal, moist mucous membranes Neck Exam: normal inspection, non-tender, supple, full range of motion Respiratory Exam: normal breath sounds, lungs clear, No respiratory distress Cardiovascular Exam: regular rate/rhythm, normal heart sounds, normal peripheral pulses, capillary refill <2 sec Gastrointestinal/Abdomen Exam: soft, normal bowel sounds, No tenderness, No mass Back Exam: normal inspection, normal range of motion, No CVA tenderness, No vertebral tenderness Extremity Exam: normal inspection, normal range of motion, pelvis stable Neurologic Exam: alert, oriented x 3, cooperative, dry wall installations mechanic II-XII nml as tested, normal mood/affect, nml cerebellar function, nml station & gait, sensation nml, other (patient is alert, oriented x3, cranial nerves II through XII intact, speech normal. No tongue deviation, no facial droop, cluster bore operator equal and symmetrical 5 over 5, normal finger to nose, no pronator drift, full range of motion all extremities,Sensation intact all extremities, no dysdiadochokinesia) , No motor deficits Skin Exam: normal color, warm, dry, No rash Lymphatic Exam: No adenopathy SpO2 Interpretation: normal (95%) SpO2: 95 - Course Nursing assessment & vital signs reviewed: Yes EKG Interpreted by Me: RATE (79 bpm), Sinus Rhythm, NORMAL AXIS Ordered Tests: Active Orders 24 hr Category Date Time Status Accucheck STAT Care 04/22/19 14:41 Active Hardware Installation Coordinator STAT Care 04/22/19 14:42 Active EKG-ER Only STAT Care 04/22/19 14:41 Active IV Insertion STAT Care 04/22/19 14:41 Active NPO (ED) STAT Care 04/22/19 14:42 Active Pulse Oximetry (ED) STAT Care 04/22/19 14:41 Active HEAD WITHOUT CONTRAST [CT] Stat Exams 04/22/19 14:42 Taken CBC W DIFF Stat Lab 04/22/19 14:45 Completed CMP Stat Lab 04/22/19 14:45 Completed PROTIME WITH INR Stat Lab 04/22/19 14:45 Completed PTT Stat Lab 04/22/19 14:45 Completed TROPONIN Q3H Lab 04/22/19 14:45 Ordered TROPONIN Q3H Lab 04/22/19 17:45 Ordered TROPONIN Q3H Lab 04/22/19 20:45 Ordered TROPONIN Q3H Lab 04/22/19 23:45 Ordered TROPONIN Q3H Lab 04/23/19 02:45 Ordered UA W/RFX UR CULTURE Stat Lab 04/22/19 14:42 Uncollected Medication Summary Generic Name Dose Route Start Last Admin Trade Name Freq PRN Reason Stop Dose Admin Sodium Chloride 1,000 mls @ 100 mls/hr 04/22/19 14:45 Sodium Chloride 0.9% 1000 Ml IV 05/22/19 14:44 .Q10H [facility] Lab/Rad Data: Laboratory Result Diagrams 04/22/19 14:45 04/22/19 14:45 Laboratory Results 04/22/19 04/22/19 04/22/19 Range/Units 14:45 14:45 14:45 WBC 6.0 (4.0-10.5) K/mm3 RBC 4.24 (4.1-5.6) M/mm3 Hgb 13.0 (12.5-18.0) gm/dl Hct 39.5 L (42-50) % MCV 93.2 (78-100) fl MCH 30.7 (26-32) pg MCHC 32.9 (32-36) g/dl RDW 14.1 H (11.5-14.0) % Plt Count 178 (150-450) K/mm3 MPV 10.9 H (6-9.5) fl Gran % 52.8 (36.0-66.0) % Eos # (Auto) 0.18 (0-0.5) Absolute Lymphs (auto) 2.09 (1.0-4.6) Absolute Monos (auto) 0.56 (0.0-1.3) Lymphocytes % 34.6 (24.0-44.0) % Monocytes % 9.3 (0.0-12.0) % Eosinophils % 3.0 (0.00-5.0) % Basophils % 0.3 (0.0-0.4) % Absolute Granulocytes 3.19 (1.4-6.9) Basophils # 0.02 (0-0.4) PT 14.2 H (8.83-12.87) SECONDS INR 1.25 (0.8-3.0) APTT 34.8 (24.1-36.1) SECONDS Sodium 141 (137-145) mmol/L Potassium 5.0 (3.5-5.1) mmol/L Chloride 106 (98-107) mmol/L Carbon Dioxide 26 (22-30) mmol/L Anion Gap 14.0 (5-15) MEQ/L BUN 36 H (9-20) mg/dL Creatinine 2.39 H (0.66-1.25) mg/dL Estimated GFR 27.4 ML/MIN Glucose 109 H (74-106) mg/dL Calcium 9.1 (8.4-10.2) mg/dL Total Bilirubin 0.40 (0.2-1.3) mg/dL AST 24 (17-59) U/L ALT 17 (0-50) U/L Alkaline Phosphatase 126 (38-126) U/L Serum Total Protein 6.9 (6.3-8.2) g/dL Albumin 3.9 (3.5-5.0) g/dL - Progress Progress: improved Progress Note: 04/22/19 15:19 80-year-old white male arrives with complaint of slurred speech since 1:00 he also states he has some right hand paresthesia. He states he has similar symptoms 4 days ago. Currently on interview his speech is clear and he has full range of motion with normal neurologic examination patient does have a subtle right subarachnoid hemorrhage on CT per radiology patient is on Elequis 2.5 mg, twice a day and aspirin 81 mg orally daily patient's vitals are stable. 04/22/19 15:26 04/22/19 15:27 I contacted [facility] one call and discuss case with Dr. Brooks. Will transfer patient to [facility] emergency room. I've discussed the case with Dr. Rodriguez he agrees with transfer to [facility]. - Departure Departure Disposition: Transfer ([facility]) Clinical Impression: Intracranial bleed, Hemorrhagic stroke, Paresthesias in right hand, Speech disorder Condition: Fair Critical Care Time: No Referrals: MARY RODRIGUEZ MD [Primary Care Provider] -
--- NOTE | 2019-04-22 15:26 | XRAY ---
Exam: CT of the head without IV contrast from 04/22/2019. CTDI: 68.98 Comparison: None. Indication: 88-year-old male with slurred speech, no history of prior stroke. Technique: Non-IV contrast axial images were obtained through the brain. Reconstructed coronal and sagittal images were created and reviewed. Findings: The ventricles are mildly prominent in a diffuse manner consistent with atrophy. No focal mass effect or midline shift is seen. I note some asymmetric, high attenuation, curvilinear density within an upper left parietal cortical sulcus suggestive of acute focal subarachnoid hemorrhage. This is best seen on axial images #27 through #31. I see no other evidence of acute intracranial hemorrhage. Moderate bilateral periventricular and subcortical white matter changes are seen, likely reflecting chronic small vessel ischemic disease. No dominant acute territorial infarct is seen. The remainder of the cortical sulci and basilar cisterns is prominent consistent with generalized atrophy. The calvarium of the skull appears intact. Pneumatization of the middle nasal turbinates is seen, more prominent on the right than left (i.e. handy bullosa. There is slight deviation of the nasal septum toward the left on the more inferior cuts. The paranasal sinuses reveal a 1.2 cm x 1.0 cm oval-shaped soft tissue density within the inferior anterior left aspect of the sphenoid sinus. This may represent some mucosal thickening or a polyp/retention cyst. Some vascular calcification is seen within the distal vertebral arteries. Impression: 1. I believe there is a subtle acute focal subarachnoid hemorrhage within an upper left parietal cortical sulcus. This is probably best seen on axial image #29. I called this report to the emergency Department physician, Dr. South, at 3:13 PM on 03/23/2019. 2. Moderate generalized atrophy and evidence of chronic small vessel ischemic white matter changes are seen. 3. No other acute intracranial process is seen. 4. 1.2 cm x 1.0 cm oval-shaped soft tissue density within the left side of lower sphenoid sinus anterolaterally. See above.
[2019-04-22] MEDS ORDERED: Sodium Chloride 0.9% 1000 ML 1,000 ML ONE (15:28)
[2019-04-22 15:40] VITALS: BP 123/76
== END 2019-04-22 15:42 | disposition short-term general hospital (02) ==
LOC: ED 14:29
DX: I62.9 Nontraumatic intracranial hemorrhage, unspecified (principal); I61.8 Other nontraumatic intracerebral hemorrhage; Z85.46 Personal history of malignant neoplasm of prostate; Z95.2 Presence of prosthetic heart valve; Z79.01 Long term (current) use of anticoagulants; Z79.899 Other long term (current) drug therapy
CPT/HCPCS: 36000; 36415; 70450; 80053; 82962; 84484; 85025; 85610; 85730; 93005; 93041; 94760; 96360; 99285; 99291

== ENCOUNTER 2019-05-22 09:57 | Observation (INO) | payer MEDICARE ==
--- NOTE | 2019-05-22 10:04 | ERPHSYRPT ---
- History of Present Illness Time Seen by Provider: 05/22/19 09:59 Source: patient, family, EMS Physician History: 88 y/o white male presents with weakness and found to have low bp. pt has h/o chf, htn, and cardiac valve replacement. pt has chronic upper back pain. pt denies cp, denies soa and denies abd pain. pt denies any active bleeding. pt was to have a back injection for his chronic back pain today. pt has not had his morning medications Timing/Duration: today Severity: mild Associated Symptoms: weakness, No nausea, No vomiting, No abdominal pain, No shortness of breath, No chest pain, No syncope Allergies/Adverse Reactions: No Known Drug Allergies Allergy (Verified 05/22/19 10:13) Home Medications: Dronedarone Hydrochloride 400* [Multaq 400 MG] 400 mg BID 02/24/12 [History] Amlodipine Besylate 5 mg [Norvasc 5 mg] 5 mg PO BID 01/25/17 [History] Carvedilol 3.125 mg [Coreg 3.125 MG] 3.125 mg PO BID 01/25/17 [History] Celecoxib 100 mg [celeBREX 100 MG] 100 mg PO DAILY 01/25/17 [History] PANTOPRAZOLE 40 mg Tablet [Protonix 40MG Tablet] 40 mg PO DAILY 01/25/17 [ History] Fenofibrate [Lipofen] 50 mg PO DAILY 05/22/19 [History] Levetiracetam [Keppra 500 mg ] 500 mg PO BID 05/22/19 [History] Torsemide 10 mg PO DAILY 05/22/19 [History] Hx Tetanus, Diphtheria Vaccination/Date Given: Yes Hx Influenza Vaccination/Date Given: Yes Hx Pneumococcal Vaccination/Date Given: No - Review of Systems Constitutional: Weakness Eyes: No Symptoms Ears, Nose, & Throat: No Symptoms Respiratory: No Symptoms Cardiac: No Symptoms Abdominal/Gastrointestinal: No Symptoms Genitourinary Symptoms: No Symptoms Musculoskeletal: No Symptoms Skin: No Symptoms Neurological: No Symptoms Psychological: No Symptoms Endocrine: No Symptoms Hematologic/Lymphatic: No Symptoms Immunological/Allergic: No Symptoms All Other Systems: Reviewed and Negative - Past Medical History Pertinent Past Medical History: Yes Neurological History: No Pertinent History ENT History: No Pertinent History Cardiac History: Other Respiratory History: No Pertinent History Endocrine Medical History: No Pertinent History Musculoskeletal History: No Pertinent History GI Medical History: GI Bleed History: No Pertinent History Psycho-Social History: No Pertinent History Male Reproductive Disorders: Other, Prostate Cancer Other Medical History: hx of valve replacement - Past Surgical History Past Surgical History: Yes Neuro Surgical History: No Pertinent History Cardiac: Valve Replacement Respiratory: No Pertinent History Gastrointestinal: Other Male Surgical History: Prostate Surgery Other Surgical History: radiation to prostate - Social History Smoking Status: Former smoker Exposure to second hand smoke: No Drug Use: none Patient Lives Alone: No - Nursing Vital Signs Nursing Vital Signs: Initial Vital Signs Temperature 97.5 F 05/22/19 09:58 Pulse Rate 73 05/22/19 09:58 Blood Pressure 101/69 05/22/19 09:58 O2 Sat by Pulse Oximetry 99 05/22/19 09:58 Pain Scale Pain Intensity 0 - Physical Exam General Appearance: no apparent distress, alert, anxiety Eye Exam: PERRL/EOMI Ears, Nose, Throat Exam: normal ENT inspection, moist mucous membranes Neck Exam: normal inspection, non-tender, supple, full range of motion Respiratory Exam: normal breath sounds, lungs clear, airway intact, No chest tenderness, No respiratory distress Cardiovascular Exam: regular rate/rhythm, normal heart sounds, normal peripheral pulses Gastrointestinal/Abdomen Exam: soft, normal bowel sounds, No tenderness Rectal Exam: not done Back Exam: normal inspection, normal range of motion, No CVA tenderness, No vertebral tenderness Extremity Exam: normal range of motion, pelvis stable, pedal edema (bilat ankle and feet) Neurologic Exam: alert, oriented x 3, cooperative, normal mood/affect, nml cerebellar function, nml station & gait Skin Exam: normal color, warm, dry Lymphatic Exam: No adenopathy SpO2 Interpretation: normal O2 Delivery: Room Air Ordered Tests: Active Orders 24 hr Category Date Time Status Investor STAT Care 05/22/19 10:05 Active EKG-ER Only STAT Care 05/22/19 10:04 Active Orthostatic Vital Signs STAT Care 05/22/19 11:44 Active CBC W DIFF Stat Lab 05/22/19 10:25 Completed CMP Stat Lab 05/22/19 10:25 Completed NT PRO BNP Stat Lab 05/22/19 10:25 Completed PROTIME WITH INR Stat Lab 05/22/19 10:25 Completed TROPONIN Q3H Lab 05/22/19 10:25 Completed TROPONIN Q3H Lab 05/22/19 13:15 Ordered TROPONIN Q3H Lab 05/22/19 16:15 Ordered TROPONIN Q3H Lab 05/22/19 19:15 Ordered TROPONIN Q3H Lab 05/22/19 22:15 Ordered Transfer Order Routine Transfer 05/22/19 Ordered Medication Summary Discontinued Medications Generic Name Dose Route Start Last Admin Trade Name Queta PRN Reason Stop Dose Admin Furosemide 40 mg 05/22/19 11:32 05/22/19 12:02 Lasix 40 Mg/4 Ml IV 05/22/19 11:33 40 mg STAT ONE Administration Furosemide Confirm 05/22/19 11:56 Lasix 40 Mg/4 Ml Administered 05/22/19 11:57 Dose 40 mg .ROUTE .STK-MED ONE Lab/Rad Data: Laboratory Result Diagrams 05/22/19 10:25 05/22/19 10:25 Laboratory Results 05/22/19 05/22/19 05/22/19 Range/Units 10:25 10:25 10:25 WBC (4.0-10.5) K/mm3 RBC (4.1-5.6) M/mm3 Hgb (12.5-18.0) gm/dl Hct (42-50) % MCV (78-100) fl MCH (26-32) pg MCHC (32-36) g/dl RDW (11.5-14.0) % Plt Count (150-450) K/mm3 MPV (6-9.5) fl Gran % (36.0-66.0) % Eos # (Auto) (0-0.5) Absolute Lymphs (auto) (1.0-4.6) Absolute Monos (auto) (0.0-1.3) Lymphocytes % (24.0-44.0) % Monocytes % (0.0-12.0) % Eosinophils % (0.00-5.0) % Basophils % (0.0-0.4) % Absolute Granulocytes (1.4-6.9) Basophils # (0-0.4) PT 12.1 (8.83-12.87) SECONDS INR 1.07 (0.8-3.0) Sodium 145 (137-145) mmol/L Potassium 4.4 (3.5-5.1) mmol/L Chloride 115 H (98-107) mmol/L Carbon Dioxide 23 (22-30) mmol/L Anion Gap 11.3 (5-15) MEQ/L BUN 26 H (9-20) mg/dL Creatinine 1.75 H (0.66-1.25) mg/dL Estimated GFR 39.3 ML/MIN Glucose 111 H (74-106) mg/dL Calcium 9.0 (8.4-10.2) mg/dL Total Bilirubin 0.50 (0.2-1.3) mg/dL AST 22 (17-59) U/L ALT 16 (0-50) U/L Alkaline Phosphatase 84 (38-126) U/L Troponin I < 0.012 (0.000-0.034) ng/mL NT-Pro-B Natriuret Pep 283 (0-1800) pg/mL Serum Total Protein 6.2 L (6.3-8.2) g/dL Albumin 3.5 (3.5-5.0) g/dL 05/22/19 Range/Units 10:25 WBC 5.7 (4.0-10.5) K/mm3 RBC 3.61 L (4.1-5.6) M/mm3 Hgb 11.1 L (12.5-18.0) gm/dl Hct 35.2 L (42-50) % MCV 97.5 (78-100) fl MCH 30.7 (26-32) pg MCHC 31.5 L (32-36) g/dl RDW 14.2 H (11.5-14.0) % Plt Count 126 L (150-450) K/mm3 MPV 11.1 H (6-9.5) fl Gran % 64.4 (36.0-66.0) % Eos # (Auto) 0.14 (0-0.5) Absolute Lymphs (auto) 1.32 (1.0-4.6) Absolute Monos (auto) 0.57 (0.0-1.3) Lymphocytes % 23.0 L (24.0-44.0) % Monocytes % 9.9 (0.0-12.0) % Eosinophils % 2.4 (0.00-5.0) % Basophils % 0.3 (0.0-0.4) % Absolute Granulocytes 3.69 (1.4-6.9) Basophils # 0.02 (0-0.4) PT (8.83-12.87) SECONDS INR (0.8-3.0) Sodium (137-145) mmol/L Potassium (3.5-5.1) mmol/L Chloride (98-107) mmol/L Carbon Dioxide (22-30) mmol/L Anion Gap (5-15) MEQ/L BUN (9-20) mg/dL Creatinine (0.66-1.25) mg/dL Estimated GFR ML/MIN Glucose (74-106) mg/dL Calcium (8.4-10.2) mg/dL Total Bilirubin (0.2-1.3) mg/dL AST (17-59) U/L ALT (0-50) U/L Alkaline Phosphatase (38-126) U/L Troponin I (0.000-0.034) ng/mL NT-Pro-B Natriuret Pep (0-1800) pg/mL Serum Total Protein (6.3-8.2) g/dL Albumin (3.5-5.0) g/dL - Progress Progress: improved Progress Note: 05/22/19 12:[address] rodriguez. i reviewed pt hx, condition, lab, ekg results.. will place in observation Discussed with : Laure Counseled pt/family regarding: lab results, diagnosis - Departure Departure Disposition: Home Clinical Impression: Weakness, Hypotension Condition: Fair Critical Care Time: Yes Critical Care Time(excluding separately billable procedures): 30-74 minutes Referrals: MARY RODRIGUEZ MD [Primary Care Provider] -
[2019-05-22 10:30] LABS: BASOPHIL % 0.3 % (0.0-0.4); Basophil (Absolute #) 0.02 (0-0.4); Eosinophil % 2.4 % (0.00-5.0); Eosinophil (Absolute #) 0.14 (0-0.5); Granulocyte Absolute (ANC) 3.69 (1.4-6.9); Granulocytes % 64.4 % (36.0-66.0); Hematocrit 35.2 % (42-50); Hemoglobin 11.1 gm/dl (12.5-18.0); Lymphocyte (Absolute #) 1.32 (1.0-4.6); Mean Cell Volume 97.5 fl (78-100); Mean Corpuscular Hemoglobin 30.7 pg (26-32); Mean Corpuscular Hgb Concent. 31.5 g/dl (32-36); Mean Platelet Volume 11.1 fl (6-9.5); Monocyte (Absolute #) 0.57 (0.0-1.3); Monocytes % 9.9 % (0.0-12.0); Platelet Count 126 K/mm3 (150-450); Red Blood Count 3.61 M/mm3 (4.1-5.6); Red Cell Distribution Width 14.2 % (11.5-14.0); White Blood Count 5.7 K/mm3 (4.0-10.5)
[2019-05-22 10:35] LABS: INR 1.07 (0.8-3.0); PROTIME 12.1 SECONDS (8.83-12.87)
[2019-05-22 10:49] LABS: ALBUMIN 3.5 g/dL (3.5-5.0); ANION GAP 11.3 MEQ/L (5-15); BILIRUBIN,TOTAL 0.5 mg/dL (0.2-1.3); Creatinine 1 1.75 mg/dL (0.66-1.25); Potassium 4.4 mmol/L (3.5-5.1); Total Protein 6.2 g/dL (6.3-8.2)
[2019-05-22] MEDS ORDERED: Lasix 40 MG/4 ML IV ONE (11:32)
[2019-05-22] MEDS ORDERED: Lasix 40 MG/4 ML ONE (11:56)
[2019-05-22] MEDS: Sodium Chloride 0.9% 1000 ML 1,000 ML IV SCH (14:10)
[2019-05-22] MEDS: Protonix 40MG Tablet PO SCH (17:29)
[2019-05-22] MEDS: KEPPRA 500 MG PO SCH (21:43)
[2019-05-22] MEDS: celeBREX 100 MG PO SCH (21:43)
[2019-05-22] MEDS: Multaq 400 MG PO SCH (21:43)
[2019-05-23 06:36] LABS: BASOPHIL % 0.2 % (0.0-0.4); Basophil (Absolute #) 0.01 (0-0.4); Eosinophil (Absolute #) 0.11 (0-0.5); Granulocyte Absolute (ANC) 2.95 (1.4-6.9); Hematocrit 32.8 % (42-50); Hemoglobin 10.3 gm/dl (12.5-18.0); Lymphocytes % 29.8 % (24.0-44.0); Mean Cell Volume 97.6 fl (78-100); Mean Corpuscular Hgb Concent. 31.4 g/dl (32-36); Mean Platelet Volume 11.6 fl (6-9.5); Platelet Count 90 K/mm3 (150-450); Red Blood Count 3.36 M/mm3 (4.1-5.6); Red Cell Distribution Width 14.2 % (11.5-14.0); White Blood Count 5.4 K/mm3 (4.0-10.5)
[2019-05-23 06:41] LABS: Mean Corpuscular Hemoglobin 30.6 pg (26-32)
[2019-05-23 07:00] LABS: ALBUMIN 3.4 g/dL (3.5-5.0); ANION GAP 10.2 MEQ/L (5-15); BILIRUBIN,TOTAL 0.6 mg/dL (0.2-1.3); Calcium 8.7 mg/dL (8.4-10.2); Creatinine 1 1.81 mg/dL (0.66-1.25); Potassium 4.7 mmol/L (3.5-5.1); Total Protein 6.1 g/dL (6.3-8.2)
[2019-05-23 08:31] LABS: Slide Review 1 YES
[2019-05-23] MEDS ORDERED: FENOFIBRATE 50 MG PO SCH (10:00)
[2019-05-23] MEDS: Tricor 145 MG PO SCH (10:34)
[2019-05-23] MEDS: Multaq 400 MG PO SCH ×2 (10:34→22:48)
[2019-05-23] MEDS: Protonix 40MG Tablet PO SCH (10:34)
[2019-05-23] MEDS: KEPPRA 500 MG PO SCH ×2 (10:35→22:47)
[2019-05-23] MEDS: celeBREX 100 MG PO SCH ×2 (10:35→22:47)
--- NOTE | 2019-05-23 12:08 | PCM.HP ---
History of Present Illness - Chief Complaint Chief Complaint: very low blood pressure for 2 days History of Present Illness: is a 88 y/o white male presents with weakness and found to have low bp. pt has h/o chf, htn, and cardiac valve replacement. pt has chronic upper back pain. pt denies cp, denies soa and denies abd pain. pt denies any active bleeding. pt was to have a back injection for his chronic back pain today. pt has not had his morning medications - Review of Systems Constitutional: No Fever, No Chills Eyes: No Symptoms Ears, Nose, & Throat: No Symptoms Respiratory: No Cough, No Short Of Breath Cardiac: No Chest Pain, No Edema, No Syncope Abdominal/Gastrointestinal: No Abdominal Pain, No Nausea, No Vomiting, No Diarrhea Genitourinary Symptoms: No Dysuria Musculoskeletal: No Back Pain, No Neck Pain Skin: No Rash Neurological: No Dizziness, No Focal Weakness, No Sensory Changes Psychological: No Symptoms Endocrine: No Symptoms Hematologic/Lymphatic: No Symptoms Immunological/Allergic: No Symptoms Medications & Allergies Home Medications: Home Medication List Dronedarone Hydrochloride 400* [Multaq 400 MG] 400 mg BID 02/24/12 [History Confirmed 05/22/19] Amlodipine Besylate 5 mg [Norvasc 5 mg] 5 mg PO BID 01/25/17 [History Confirmed 05/22/19] Carvedilol 3.125 mg [Coreg 3.125 MG] 3.125 mg PO BID 01/25/17 [History Confirmed 05/22/19] Celecoxib 100 mg [celeBREX 100 MG] 100 mg PO BID 01/25/17 [History Confirmed 05/22/19] PANTOPRAZOLE 40 mg Tablet [Protonix 40MG Tablet] 40 mg PO DAILY 01/25/17 [ History Confirmed 05/22/19] Fenofibrate [Lipofen] 50 mg PO DAILY 05/22/19 [History Confirmed 05/22/19] Levetiracetam [Keppra 500 mg ] 500 mg PO BID 05/22/19 [History Confirmed 05/22/19] Torsemide 10 mg PO DAILY 05/22/19 [History Confirmed 05/22/19] Allergies/Adverse Reactions: Allergies Allergy/AdvReac Type Severity Reaction Status Date / Time No Known Drug Allergies Allergy Verified 05/22/19 10:13 - Past Medical History Past Medical History: Yes Neurological History: Seizures, Stroke, TIA ENT History: Cataracts Cardiac History: Arrhythmia, Congestive Heart Failure, Hypertension, Other Respiratory History: Pneumonia Endocrine Medical History: No Pertinent History Musculoskelatal History: No Pertinent History GI Medical History: GI Bleed History: No Pertinent History Pyscho-Social History: No Pertinent History Male Reproductive Disorders: Other, Prostate Cancer Comment: hx of valve replacement; brain bleed; esophageal tear; a-fib - Past Surgical History Past Surgical History: Yes Neuro Surgical History: No Pertinent History Cardiac History: Valve Replacement Respiratory Surgery: No Pertinent History GI Surgical History: Other Musculskeletal Surgical Hx: Other Male Surgical History: Prostate Surgery Other Surgical History: radiation to prostate; esophageal repair; knee hardware ; IVC filter - Social History Smoking Status: Former smoker Exposure to second hand smoke: No Alcohol: None Drug Use: none - Physical Exam Vital Signs: Vital Signs - 24 hr Temp Pulse Resp BP Pulse Ox 05/23/19 11:17 93 L 05/23/19 09:09 72 94/50 05/23/19 08:42 72 87/54 05/23/19 08:00 98.6 F 76 18 89/49 93 L 05/23/19 04:00 98.9 F 76 18 99/61 97 05/22/19 23:53 99.9 F 80 16 97/54 95 05/22/19 20:00 99.2 F 78 18 108/54 98 05/22/19 19:30 97 05/22/19 16:35 97.9 F 82 20 109/65 96 05/22/19 14:55 97.8 F 78 22 112/63 98 05/22/19 13:33 97.8 F 78 22 112/63 98 05/22/19 12:50 97.8 F 78 22 112/63 78 L 05/22/19 12:27 78 16 106/73 99 Oxygen-Last 24 hours O2 Percentage 2 Liters = 28% O2 Percentage 2 Liters = 28% O2 Percentage 2 Liters = 28% O2 Percentage 2 Liters = 28% O2 Percentage 2 Liters = 28% O2 Percentage 2 Liters = 28% O2 Percentage 2 Liters = 28% O2 Percentage 3 Liters = 32% O2 Percentage 2 Liters = 28% General Appearance: no apparent distress, alert Neurologic Exam: alert, oriented x 3, cooperative, normal mood/affect, nml cerebellar function, nml station & gait, sensation nml, No motor deficits Eye Exam: PERRL/EOMI, eyes nml inspection Ears, Nose, Throat Exam: normal ENT inspection, TMs normal, pharynx normal, moist mucous membranes Neck Exam: normal inspection, non-tender, supple, full range of motion Respiratory Exam: normal breath sounds, lungs clear, No respiratory distress Cardiovascular Exam: regular rate/rhythm, normal heart sounds, normal peripheral pulses Gastrointestinal/Abdomen Exam: soft, normal bowel sounds, No tenderness, No mass Back Exam: normal inspection, normal range of motion, No CVA tenderness, No vertebral tenderness Extremity Exam: normal inspection, normal range of motion, pelvis stable Skin Exam: normal color, warm, dry, No rash Lymphatic Exam: No adenopathy Results - Labs Lab/Micro Results: Lab Results-Last 24 Hours 05/22/19 05/22/19 05/22/19 Range/Units 13:15 16:33 19:25 WBC (4.0-10.5) K/mm3 RBC (4.1-5.6) M/mm3 Hgb (12.5-18.0) gm/dl Hct (42-50) % MCV (78-100) fl MCH (26-32) pg MCHC (32-36) g/dl RDW (11.5-14.0) % Plt Count (150-450) K/mm3 MPV (6-9.5) fl Gran % (36.0-66.0) % Eos # (Auto) (0-0.5) Absolute Lymphs (auto) (1.0-4.6) Absolute Monos (auto) (0.0-1.3) Lymphocytes % (24.0-44.0) % Monocytes % (0.0-12.0) % Eosinophils % (0.00-5.0) % Basophils % (0.0-0.4) % Absolute Granulocytes (1.4-6.9) Basophils # (0-0.4) Sodium (137-145) mmol/L Potassium (3.5-5.1) mmol/L Chloride (98-107) mmol/L Carbon Dioxide (22-30) mmol/L Anion Gap (5-15) MEQ/L BUN (9-20) mg/dL Creatinine (0.66-1.25) mg/dL Estimated GFR ML/MIN Glucose (74-106) mg/dL Calcium (8.4-10.2) mg/dL Total Bilirubin (0.2-1.3) mg/dL AST (17-59) U/L ALT (0-50) U/L Alkaline Phosphatase (38-126) U/L Troponin I < 0.012 < 0.012 < 0.012 (0.000-0.034) ng/mL Serum Total Protein (6.3-8.2) g/dL Albumin (3.5-5.0) g/dL Slides for Path Review 05/22/19 05/23/19 05/23/19 Range/Units 22:40 04:00 05:45 WBC 5.4 (4.0-10.5) K/mm3 RBC 3.36 L (4.1-5.6) M/mm3 Hgb 10.3 L (12.5-18.0) gm/dl Hct 32.8 L (42-50) % MCV 97.6 (78-100) fl MCH 30.6 (26-32) pg MCHC 31.4 L (32-36) g/dl RDW 14.2 H (11.5-14.0) % Plt Count 90 L (150-450) K/mm3 MPV 11.6 H (6-9.5) fl Gran % 55.0 (36.0-66.0) % Eos # (Auto) 0.11 (0-0.5) Absolute Lymphs (auto) 1.60 (1.0-4.6) Absolute Monos (auto) 0.70 (0.0-1.3) Lymphocytes % 29.8 (24.0-44.0) % Monocytes % 13.0 H (0.0-12.0) % Eosinophils % 2.0 (0.00-5.0) % Basophils % 0.2 (0.0-0.4) % Absolute Granulocytes 2.95 (1.4-6.9) Basophils # 0.01 (0-0.4) Sodium 141 (137-145) mmol/L Potassium 4.7 (3.5-5.1) mmol/L Chloride 110 H (98-107) mmol/L Carbon Dioxide 25 (22-30) mmol/L Anion Gap 10.2 (5-15) MEQ/L BUN 32 H (9-20) mg/dL Creatinine 1.81 H (0.66-1.25) mg/dL Estimated GFR 37.8 ML/MIN Glucose 102 (74-106) mg/dL Calcium 8.7 (8.4-10.2) mg/dL Total Bilirubin 0.60 (0.2-1.3) mg/dL AST 22 (17-59) U/L ALT 13 (0-50) U/L Alkaline Phosphatase 73 (38-126) U/L Troponin I < 0.012 (0.000-0.034) ng/mL Serum Total Protein 6.1 L (6.3-8.2) g/dL Albumin 3.4 L (3.5-5.0) g/dL Slides for Path Review YES - Other Procedures and Tests Respiratory Therapy 05/22/19 20:34 Oxygen NASAL CANNULA 2 lpm Assessment/Plan (1) CHF (congestive heart failure), NYHA class IV Current Visit: Yes Status: Acute Qualifiers: Congestive heart failure type: combined Congestive heart failure chronicity : acute on chronic Qualified Code(s): I50.43 - Acute on chronic combined systolic (congestive) and diastolic (congestive) heart failure Assessment & Plan: Last Vital Signs Temp 98.6 F 05/23/19 08:00 Pulse 72 05/23/19 09:09 Resp 18 05/23/19 08:00 BP 94/50 05/23/19 09:09 Pulse Ox 93 L 05/23/19 11:17 Allergies No Known Drug Allergies Allergy (Verified 05/22/19 10:13) Active Medications Celecoxib (Celebrex 100 Mg) 100 mg PO BID CHERELLE Stop: 06/21/19 21:59 Last Admin: 05/23/19 10:35 Dose: 100 mg Dronedarone (Multaq 400 Mg) 400 mg PO BID CH[facility]ELLE Stop: 06/21/19 21:59 Last Admin: 05/23/19 10:34 Dose: 400 mg Fenofibrate (Tricor 145 Mg) 48.33 mg PO DAILY CH[facility]ELLE Stop: 06/22/19 09:59 Last Admin: 05/23/19 10:34 Dose: 48.33 mg Sodium Chloride (Sodium Chloride 0.9% 1000 Ml) 1,000 mls @ 50 mls/hr IV .Q20H [facility] Stop: 06/21/19 13:34 Last Admin: 05/22/19 14:10 Dose: 50 mls/hr Levetiracetam (Keppra 500 Mg ) 500 mg PO BID [facility] Stop: 06/21/19 21:59 Last Admin: 05/23/19 10:35 Dose: 500 mg Pantoprazole Sodium (Protonix 40mg Tablet) 40 mg PO DAILY [facility] Stop: 06/21/19 16:59 Last Admin: 05/23/19 10:34 Dose: 40 mg Torsemide (Demadex 20 Mg) 10 mg PO DAILY [facility] Stop: 06/22/19 09:59 Intake & Output 05/23/19 05/24/19 11:59 11:59 Intake Total 1528 Output Total 1250 Balance 278 Weight 89.1 kg Orders 05/22/19 14:22 Cardio-Pulmonary Rehab .as ordered 05/22/19 17:00 PANTOPRAZOLE 40 mg Tablet [Protonix 40MG Tablet] 40 mg PO DAILY 05/22/19 20:34 Oxygen NASAL CANNULA 2 lpm Pulse Oximetry .spot check 05/22/19 22:00 Celecoxib 100 mg [celeBREX 100 MG] 100 mg PO BID Dronedarone Hydrochloride 400* [Multaq 400 MG] 400 mg PO BID Levetiracetam [Keppra 500 mg ] 500 mg PO BID 05/22/19 Dinner Regular Diet 05/23/19 10:00 Fenofibrate,Micronized 145 mg* [Tricor 145 MG] 48.33 mg PO DAILY Torsemide 20 mg [Demadex 20 mg] 10 mg PO DAILY Lab Tests 05/22/19 05/22/19 05/22/19 13:15 16:33 19:25 WBC RBC Hgb Hct MCV MCH MCHC RDW Plt Count MPV Gran % Eos # (Auto) Absolute Lymphs (auto) Absolute Monos (auto) Lymphocytes % Monocytes % Eosinophils % Basophils % Absolute Granulocytes Basophils # Sodium Potassium Chloride Carbon Dioxide Anion Gap BUN Creatinine Estimated GFR Glucose Calcium Total Bilirubin AST ALT Alkaline Phosphatase Troponin I < 0.012 < 0.012 < 0.012 Serum Total Protein Albumin Slides for Path Review 05/22/19 05/23/19 05/23/19 22:40 04:00 05:45 WBC 5.4 RBC 3.36 L Hgb 10.3 L Hct 32.8 L MCV 97.6 MCH 30.6 MCHC 31.4 L RDW 14.2 H Plt Count 90 L MPV 11.6 H Gran % 55.0 Eos # (Auto) 0.11 Absolute Lymphs (auto) 1.60 Absolute Monos (auto) 0.70 Lymphocytes % 29.8 Monocytes % 13.0 H Eosinophils % 2.0 Basophils % 0.2 Absolute Granulocytes 2.95 Basophils # 0.01 Sodium 141 Potassium 4.7 Chloride 110 H Carbon Dioxide 25 Anion Gap 10.2 BUN 32 H Creatinine 1.81 H Estimated GFR 37.8 Glucose 102 Calcium 8.7 Total Bilirubin 0.60 AST 22 ALT 13 Alkaline Phosphatase 73 Troponin I < 0.012 Serum Total Protein 6.1 L Albumin 3.4 L Slides for Path Review YES Code(s): I50.9 - HEART FAILURE, UNSPECIFIED (2) CHF, acute on chronic Current Visit: Yes Status: Acute Qualifiers: Heart failure type: combined systolic and diastolic Qualified Code(s): I50.43 - Acute on chronic combined systolic (congestive) and diastolic ( congestive) heart failure Code(s): I50.9 - HEART FAILURE, UNSPECIFIED (3) Hypotension Current Visit: Yes Status: Acute Qualifiers: Hypotension type: hypotension due to drug Qualified Code(s): I95.2 - Hypotension due to drugs Code(s): I95.9 - HYPOTENSION, UNSPECIFIED
[2019-05-23] MEDS: DEMADEX 20 MG PO SCH (12:18)
[2019-05-23] MEDS: Sodium Chloride 0.9% 1000 ML 1,000 ML IV SCH (13:24)
[2019-05-24 07:25] VITALS: BP 114/66; PULSE 68
[2019-05-24] MEDS: KEPPRA 500 MG PO SCH (09:01)
[2019-05-24] MEDS: Multaq 400 MG PO SCH (09:01)
[2019-05-24] MEDS: DEMADEX 20 MG PO SCH (09:01)
[2019-05-24] MEDS: Protonix 40MG Tablet PO SCH (09:01)
[2019-05-24] MEDS: Tricor 145 MG PO SCH (09:02)
[2019-05-24] MEDS: celeBREX 100 MG PO SCH (09:02)
[2019-05-24 10:42] VITALS: O2SAT 92
--- NOTE | 2019-05-24 11:57 | PCM.DS ---
Discharge Summary Date of Admission: 05/22/19 13:20 Admitting Physician: MARY RODRIGUEZ Primary Care Provider: MARY RODRIGUEZ Allergies Allergies No Known Drug Allergies Allergy (Verified 05/22/19 10:13) Hospital Summary - Hospital Course Hospital Course: Chief Complaint Diagnosis very low blood pressure for 2 days Allergies Allergy/AdvReac Type Severity Reaction Status Date / Time No Known Drug Allergies Allergy Verified 05/22/19 10:13 Vital Signs (Last 24 hours) Temp Pulse Resp BP Pulse Ox 05/24/19 10:43 92 L 05/24/19 10:42 92 L 05/24/19 07:23 97.7 F 68 20 114/66 96 05/24/19 04:54 98.5 F 69 18 99/56 97 05/24/19 01:00 98.8 F 77 20 110/56 94 L 05/23/19 21:00 98.4 F 91 H 20 117/69 95 05/23/19 20:43 97 05/23/19 15:42 98 F 68 20 113/64 98 05/23/19 13:18 98.8 F 70 18 105/62 96 Home Medications Medication Instructions Recorded Confirmed Last Taken Type Levetiracetam [Keppra 500 mg 500 mg PO BID 05/22/19 05/22/19 05/21/19 History ] Torsemide 10 mg PO DAILY 05/22/19 05/22/19 05/21/19 History Amlodipine Besylate 5 mg 5 mg PO HS #30 05/24/19 05/22/19 05/21/19 Rx [Norvasc 5 mg] Carvedilol 3.125 mg [Coreg 3.125 mg PO DAILY #30 05/24/19 05/22/19 05/21/19 Rx 3.125 MG] Dronedarone Hydrochloride 400* 200 mg PO BID #30 05/24/19 05/22/19 05/21/19 Rx [Multaq 400 MG] Current Medications Discontinued Medications Generic Name Dose Route Start Last Admin Trade Name Freq PRN Reason Stop Dose Admin Celecoxib 100 mg 05/22/19 22:00 05/24/19 09:02 Celebrex 100 Mg PO 06/21/19 21:59 100 mg BID CHERELLE Administration Dronedarone 400 mg 05/22/19 22:00 05/24/19 09:01 Multaq 400 Mg PO 06/21/19 21:59 400 mg BID CHERELLE Administration Fenofibrate 48.33 mg 05/23/19 10:00 05/24/19 09:02 Tricor 145 Mg PO 06/22/19 09:59 48.33 mg DAILY CHERELLE Administration Furosemide 40 mg 05/22/19 11:32 05/22/19 12:02 Lasix 40 Mg/4 Ml IV 05/22/19 11:33 40 mg STAT ONE Administration Furosemide Confirm 05/22/19 11:56 Lasix 40 Mg/4 Ml Administered 05/22/19 11:57 Dose 40 mg .ROUTE .STK-MED ONE Sodium Chloride 1,000 mls @ 50 mls/hr 05/22/19 13:35 05/23/19 13:24 Sodium Chloride 0.9% 1000 Ml IV 06/21/19 13:34 50 mls/hr .Q20H CHERELLE Administration Levetiracetam 500 mg 05/22/19 22:00 05/24/19 09:01 Keppra 500 Mg PO 06/21/19 21:59 500 mg BID CHERELLE Administration Pantoprazole Sodium 40 mg 05/22/19 17:00 05/24/19 09:01 Protonix 40mg Tablet PO 06/21/19 16:59 40 mg DAILY CHERELLE Administration Torsemide 10 mg 05/23/19 10:00 05/24/19 09:01 Demadex 20 Mg PO 06/22/19 09:59 10 mg DAILY CHERELLE Administration Intake & Output (Last 24 hours) 05/21/19 05/22/19 05/23/19 05/24/19 11:59 11:59 11:59 11:59 Intake Total 1528 2246 Output Total 1250 2300 Balance 278 -54 Weight 83.915 kg 89.1 kg 91 kg Orders (Last 24 hours) Category Date Time Status Discharge Planning,Consult Routine Discharge 05/24/19 Active Discharge Routine Discharge 05/24/19 Ordered Patient Care Notes (Last 24 hours) 05/24/19 11:21 Nursing Note by Marianne Herrera Patient wheeled to front exit on discharge. [facility] representative met with patient and family before discharge to discuss setting up the hospice program at home Initialized on 05/24/19 11:21 - END OF NOTE - Vitals & Intake/Output Vital Signs: Vital Signs Temperature 97.7 F 05/24/19 07:23 Pulse Rate 68 05/24/19 07:23 Respiratory Rate 20 05/24/19 07:23 Blood Pressure 114/66 05/24/19 07:23 O2 Sat by Pulse Oximetry 92 L 05/24/19 10:43 Oxygen-Last Documented O2 Percentage 3 Liters = 32% Intake & Output: Intake & Output 05/21/19 05/22/19 05/23/19 05/24/19 11:59 11:59 11:59 11:59 Intake Total 1528 2246 Output Total 1250 2300 Balance 278 -54 Weight 83.915 kg 89.1 kg 91 kg - Lab Result Diagrams: 05/23/19 04:00 05/23/19 05:45 - Procedures and Test Procedures and Tests throughout Hospitalization: Therapy Orders & Screens 05/22/19 20:34 Oxygen NASAL CANNULA 2 lpm Comment: Diagnosis: weakness; hypotension Discharge Exam General Appearance: no apparent distress, alert Neurologic Exam: alert, oriented x 3, cooperative, normal mood/affect, nml cerebellar function, sensation nml, No motor deficits Eye Exam: PERRL, EOMI, eyes nml inspection Ears, Nose, Throat Exam: normal ENT inspection, pharynx normal, moist mucous membranes Neck Exam: normal inspection, non-tender, supple, full range of motion Respiratory Exam: normal breath sounds, lungs clear, No respiratory distress Cardiovascular Exam: regular rate/rhythm, normal heart sounds Gastrointestinal/Abdomen Exam: soft, No tenderness, No mass Male Genitalia Exam: deferred Rectal Exam: deferred Back Exam: normal inspection, normal range of motion, No CVA tenderness, No vertebral tenderness Extremity Exam: normal inspection, normal range of motion Skin Exam: normal color, warm, dry Final Diagnosis/Problem List - Final Discharge Diagnosis/Problem (1) CHF (congestive heart failure), NYHA class IV Status: Resolved Code(s): I50.9 - HEART FAILURE, UNSPECIFIED (2) CHF, acute on chronic Status: Resolved Code(s): I50.9 - HEART FAILURE, UNSPECIFIED (3) Hypotension Status: Acute Code(s): I95.9 - HYPOTENSION, UNSPECIFIED - Discharge Discharge Date: 05/24/19 Disposition: Hospice @ [facility] Condition: Stable Prescriptions: Continue PANTOPRAZOLE 40 mg Tablet [Protonix 40MG Tablet] 40 mg PO DAILY Celecoxib 100 mg [celeBREX 100 MG] 100 mg PO BID Torsemide 10 mg PO DAILY Levetiracetam [Keppra 500 mg ] 500 mg PO BID Changed Carvedilol 3.125 mg [Coreg 3.125 MG] 3.125 mg PO DAILY #30 Dronedarone Hydrochloride 400* [Multaq 400 MG] 200 mg PO BID #30 Amlodipine Besylate 5 mg [Norvasc 5 mg] 5 mg PO HS #30 Discontinued Fenofibrate [Lipofen] 50 mg PO DAILY Instructions: Heart Failure, Adult (DC), Low Blood Pressure (DC) Additional Instructions: [facility] WILL ADMIT YOU TO SERVICE ONCE YOUR ARE HOME TODAY. 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
== END 2019-05-24 11:15 | disposition hospice, home (50) ==
LOC: ED 09:57 → MED SURG 13:20
PROVIDERS: ADMIT General Practice; ATTEND General Practice
DX: I50.9 Heart failure, unspecified (principal); I95.9 Hypotension, unspecified; D50.9 Iron deficiency anemia, unspecified; Z79.899 Other long term (current) drug therapy
CPT/HCPCS: 36415; 80053; 83880; 84484; 85025; 85610; 93005; 93041; 94760; 96374; 99285; G0378; J1940; A9270-GY

== ENCOUNTER 2019-06-12 11:16 | Day surgery (SDC) | payer MEDICARE ==
[2019-06-12] MEDS ORDERED: LIDOCAINE HCL 2% 100 MG/5 ML IJ ONE (11:17)
[2019-06-12] MEDS ORDERED: Depo-Medrol 40 MG/ML IM ONE (11:17)
[2019-06-12] MEDS ORDERED: Ketamine HCl 50 MG/ML ONE (11:55)
[2019-06-12] MEDS ORDERED: DIPRIVAN 200 MG/20 ML IV ONE (12:16)
[2019-06-12] MEDS ORDERED: Lactated Ringers 1,000 ML IV ONE (13:22)
--- NOTE | 2019-06-12 13:26 | XRAY ---
Indication: Bilateral L4-S1 MBB. Intraoperative fluoroscopy was provided for 8 seconds. Single digital spot images submitted for interpretation demonstrates posterior needle tips projecting over the expected course of the left and right L4-S1 nerve roots. Correlate with intraoperative findings/report. Incidental partially visualized IVC filter.
--- NOTE | 2019-06-12 13:36 | XRAY ---
8 seconds of fluoroscopy was used in surgery for bilateral L4-L5 and L5-S1 MBB.
== END 2019-06-12 12:48 | disposition home or self-care (01) ==
LOC: SDC-PAIN 11:16
PROVIDERS: ATTEND Psychiatry & Neurology Pain Medicine
DX: M47.816 Spondylosis without myelopathy or radiculopathy, lumbar region (principal); I10 Essential (primary) hypertension; K21.9 Gastro-esophageal reflux disease without esophagitis; Z79.899 Other long term (current) drug therapy
CPT/HCPCS: 64493; 64494; 72020; 77002; J1030; J2704

== ENCOUNTER 2019-07-10 10:17 | Day surgery (SDC) | payer MEDICARE ==
[2019-07-10] MEDS ORDERED: Xylocaine 1% Vial 30 ML PF IJ ONE (10:18)
[2019-07-10] MEDS ORDERED: Depo-Medrol 40 MG/ML IM ONE (10:18)
[2019-07-10] MEDS ORDERED: Marcaine 0.5% SDV 10 ML IJ ONE (10:18)
--- NOTE | 2019-07-10 16:26 | XRAY ---
23 seconds fluoroscopy time in surgery for bilateral L4-S1 MBB.
--- NOTE | 2019-07-11 06:49 | XRAY ---
Indication: Bilateral L4-S1 MBB. Intraoperative fluoroscopy was provided for 23 seconds. A PA digital spot image demonstrates distals spinal needle tips to be projected over the expected course of the left and right L4-S1 nerve roots. Correlate with intraoperative findings/report.
== END 2019-07-10 12:10 | disposition home or self-care (01) ==
LOC: SDC-PAIN 10:17
PROVIDERS: ATTEND Psychiatry & Neurology Pain Medicine
DX: M47.816 Spondylosis without myelopathy or radiculopathy, lumbar region (principal); I10 Essential (primary) hypertension; K21.9 Gastro-esophageal reflux disease without esophagitis; Z79.01 Long term (current) use of anticoagulants; Z79.899 Other long term (current) drug therapy; Z86.79 Personal history of other diseases of the circulatory system
CPT/HCPCS: 64493; 64494; 72020; 77002; J1030; J2001